=== PATIENT | female | born 1940 | race Caucasian/White ===

== ENCOUNTER → 2016-09-12 | Outpatient (CLI) | payer MEDICARE, BC ==
[~2016-09-12] MED LIST: ACTOS15 MG PO; ALTACE10 M1 PO; ALTACE10 MG PO; APIDRA (NF100 UNITS/ SQ; APIDRA100 U/ML SUBQ; ASPIRIN81 M1 PO; CRESTOR10 MG PO; FENOFIBRATE134 MG PO; GABAPENTIN300 MG PO; GLUCOTROL XL10 MG PO; HYDROCODON-ACE1 EAC7 PO; LANTUS100 U/ML SQ; LANTUS100 UNITS/ SUBQ; LEVAQUIN PO; LEVOTHROID75 MCG PO; LEVOXYL88 MC1 PO; LODINE400 MG PO; METOPROLOL SUCC50 MG PO; NEURONTIN; NITROGLYCERIN0.4 MG SL; SERTRALINE HCL50 MG PO; TOPROL XL50 MG PO; TRICOR134 MG PO; TYLENOL #3 PO; VICODIN 5/1 TAB 5/50 PO; VITAMIN D50000 UNIT PO; ZOLOFT50 MG PO
--- NOTE | ~2016-09-12 | CT57 ---
[facility] A Service of [facility] [place] RADIOLOGY TEXT RESULTS PATIENT: JEFFERSON VELASQUEZ LOCATION: [facility] : 42 UNIT #: [id number] AGE: [address]: Марина Skinner SEX: F ORDER DR: [id number] [facility] [address] [place], [place] [address] [id number] O MR#: [id number] Acc #: [id number] NAME: JEFFERSON VELASQUEZ : 1940 SEX: F STUDY DATE/TIME: 09/12/2016 10:06 UNIT: [facility] ROOM: STUDY DESCRIPTION: CT Chest Wo Cont Attending Physician: Марина Skinner A.P.R.N. Referring Physician: Марина Skinner A.P.R.N. Ordering Physician: Марина Skinner A.P.R.N. Primary Care Physician: Julio Ingram M.D. MEDICAL IMAGING REPORT This report is preliminary unless electronic signature is present EXAM Chest CT without contrast. HISTORY Hypoxemia. Patient has complained of cough for the past week. Chronic respiratory failure. TECHNIQUE Axial images were obtained without contrast and evaluated at lung and mediastinal windows. FINDINGS Chest images at mediastinal window show coronary artery calcifications quite extensively. There is no evidence of mediastinal or hilar adenopathy. There is no evidence of pleural or pericardial effusion. Lung window imaging shows emphysema with mild interstitial fibrosis. Changes are most prominent in the upper lung crawford. No suspicious masses or infiltrates are seen. IMPRESSION Emphysema with mild interstitial fibrosis. Coronary artery disease. No evidence of an acute infiltrate. Dictated by... Julio Suresh M.D. THIS IS AN ELECTRONICALLY VERIFIED REPORT Julio Suresh M.D. at 09/12/2016 6:48 PM TONY/jaky [facility] A Service of [facility] [place] RADIOLOGY TEXT RESULTS PATIENT: JEFFERSON VELASQUEZ LOCATION: [facility] : 42 UNIT #: [id number] AGE: [address]: Марина Skinner SEX: F ORDER DR: TD: 09/12/2016 16:54 JOB #: [id number] MEDICAL IMAGING REPORT Page 1 of 1 COPY
== END | disposition home or self-care (01) ==
LOC: CCAT 09:35
DX: Z01.818 Encounter for other preprocedural examination (principal); J96.11 Chronic respiratory failure with hypoxia; R05 Cough; R00.1 Bradycardia, unspecified; J43.9 Emphysema, unspecified; J84.10 Pulmonary fibrosis, unspecified; I25.10 Atherosclerotic heart disease of native coronary artery without angina pectoris; Z99.81 Dependence on supplemental oxygen
CPT/HCPCS: 71250

== ENCOUNTER → 2017-01-23 | Outpatient (CLI) | payer MEDICARE, BC ==
[2017-01-23 13:49] LABS: BUN/CREATININE RATIO 24.44; CALCIUM SERUM 9.2 mg/dL (8.4-10.2); CREATININE SERUM 0.9 mg/dL (0.6-1.4); GLOM FILT RATE Estimated 62.6 mL/min (>60); POTASSIUM 4.5 mmol/L (3.5-5.1)
== END | disposition home or self-care (01) ==
LOC: CLAB 12:13
PROVIDERS: Internal Medicine Endocrinology, Diabetes & Metabolism
DX: E11.65 Type 2 diabetes mellitus with hyperglycemia (principal)
CPT/HCPCS: 36415; 80048; 83036